=== PATIENT | female | born 1985 | race Caucasian/White ===

== ENCOUNTER 2017-02-19 21:45 | Inpatient (IN) | payer OTHER ==
[~2017-02-19] VITALS: Ht 165.1 cm; Wt 76.7 kg
[2017-02-19] MEDS ORDERED: PREN1SGL25 PO (22:25)
[2017-02-19] MEDS ORDERED: IRON65TA11 PO (22:26)
[2017-02-19] MEDS ORDERED: OXYTOCIN 20 UNITS/LR PREMIX 1,000 ML IV SCH (22:43)
[2017-02-19] MEDS ORDERED: LACTATED RINGERS 1,000 ML IV SCH (22:43)
[2017-02-19] MEDS ORDERED: NALBUPHINE 10 MG/ML AMP IVP PRN (22:45)
[2017-02-19] MEDS ORDERED: METHYLERGONOVINE 0.2 MG/ML AMP IM SCH (22:45)
[2017-02-19] MEDS ORDERED: CARBOPROST 250 MCG/ML AMP IM PRN (22:45)
[2017-02-19] MEDS ORDERED: PROMETHAZINE 25 MG/ML VIAL IVP PRN (22:45)
[2017-02-19] MEDS ORDERED: IBUPROFEN 800 MG TAB PO PRN (22:45)
[2017-02-19] MEDS ORDERED: NALBUPHINE HYDROCHLORIDE 10 MG/ML VIAL ONE (23:01)
[2017-02-19] MEDS ORDERED: OXYTOCIN 10 UNITS/ML VIAL ONE (23:17)
[2017-02-19] MEDS ORDERED: OXYTOCIN 20 UNITS/LR PREMIX 1,000 ML IV ONE (23:17)
[2017-02-19 23:51] LABS: BARBITURATE, URINE NEG. ng/ml (NEG <=200); BENZODIAZEPINE, URINE NEG. ng/mL (NEG <=200); CANNABINOID, URINE NEG. ng/mL (NEG <=50); COCAINE, URINE NEG. ng/mL (NEG <=300); OPIATE, URINE NEG. ng/mL (NEG <=2000); PHENCYCLIDINE SCREEN,URINE NEG. ng/mL (NEG <=25)
[2017-02-19 23:58] LABS: ANION GAP 14.3 (8-16); CARBON DIOXIDE 21.7 mmol/L (21-32); CREATININE 0.6 mg/dL (0.6-1.3); TOTAL BILIRUBIN 0.8 mg/dL (0.0-1.0)
[2017-02-20 00:10] LABS: BASOPHILS # (AUTO) 0.2 K/uL (0.00-0.22); BASOPHILS % (AUTO) 1.5 % (0.0-2.0); EOSINOPHILS # (AUTO) 0.2 K/uL (0-0.4); EOSINOPHILS % (AUTO) 2.2 % (0.0-4.0); LYMPHOCYTES # (AUTO) 0.9 K/uL (2.5-16.5); MEAN CORPUSCULAR HEMOGLOBIN 20 pg (27-31); MEAN CORPUSCULAR HGB CONC 29 g/dL (33-37); MONOCYTES # (AUTO) 0.8 K/uL (0.8-1.0); MONOCYTES % (AUTO) 7.4 % (1.7-9.3); NEUTROPHILS # (AUTO) 8.5 K/uL (1.8-7.7); NEUTROPHILS % (AUTO) 80.2 % (42.2-75.2); PLATELET COUNT (AUTO) 256 K/uL (140-450); RED BLOOD CELL COUNT(AUTO) 3.04 MIL/uL (4.20-5.40); WHITE BLOOD COUNT (AUTO) 10.6 K/uL (4.8-10.8)
[2017-02-20 00:12] LABS: HEMATOCRIT 20.7 % (36-48); HEMOGLOBIN 6.1 g/dL (12.0-16.0)
[2017-02-20 00:13] LABS: LYMPHOCYTES % (AUTO) 8.7 % (20.5-51.1); MEAN CORPUSCULAR VOLUME 68 fL (80-94); RED CELL DISTRIBUTION WIDTH 22.5 % (11.6-13.7)
[2017-02-20] MEDS ORDERED: METHYLERGONOVINE 0.2 MG/ML AMP IM PRN (02:00)
[2017-02-20] MEDS ORDERED: oxyCODONE/APAP 5/325 MG 1 TAB TAB PO PRN (02:00)
[2017-02-20] MEDS ORDERED: OXYTOCIN 10 UNITS/ML VIAL IM PRN (02:00)
[2017-02-20] MEDS ORDERED: HYDROcodone/APAP 5/325 MG 1 TAB TAB PO PRN (02:00)
[2017-02-20] MEDS ORDERED: IBUPROFEN 800 MG TAB PO PRN (02:00)
[2017-02-20] MEDS ORDERED: MEASLES, MUMPS, AND RUBELLA 1 VIAL SQVAC PRN (02:00)
[2017-02-20] MEDS ORDERED: BENZOCAINE/MENTHOL 20%-0.5% 60 GM CAN TP PRN (02:00)
[2017-02-20] MEDS ORDERED: TEMAZEPAM 15 MG CAP PO PRN (02:00)
[2017-02-20] MEDS ORDERED: OXYTOCIN 10 UNITS/ML VIAL IM ONE (06:00)
[2017-02-20 06:52] LABS: HEMOGLOBIN 5.4 g/dL (12.0-16.0)
[2017-02-20] MEDS: FERROUS SULFATE 325 MG TABEC PO SCH ×2 (09:00→18:06)
--- NOTE | 2017-02-20 11:20 | NUR ---
PATIENT HAS BEEN SCREENED AND CATEGORIZED LOW NUTRITION RISK. PATIENT WILL BE SEEN WITHIN 7 DAYS OF ADMISSION. 02/26/[address]
--- NOTE | 2017-02-20 13:38 | NUR ---
SS NOTE: I SPOKE WITH PT BEDSIDE AND PROVIDED HER WITH MIS[employer]RIAGE GRIEF INFORMATION WELL MORTUARY INFORMATION. PT STATED THAT SHE DID NOT HAVE ANY ADDITIONAL QUESTIONS OR CONCERNS AT THIS TIME.
--- NOTE | 2017-02-20 14:33 | NUR ---
RECEIVED HARD COPY FROM [employer] REF#[id number] APPROVED FOR 2 OB DAYS 02-19-17 TO 02-21-17.
[2017-02-20 20:04] LABS: BASOPHILS # (AUTO) 0.2 K/uL (0.00-0.22); BASOPHILS % (AUTO) 2.4 % (0.0-2.0); EOSINOPHILS # (AUTO) 0.2 K/uL (0-0.4); EOSINOPHILS % (AUTO) 2.6 % (0.0-4.0); HEMATOCRIT 26.7 % (36-48); HEMOGLOBIN 7.9 g/dL (12.0-16.0); LYMPHOCYTES # (AUTO) 1.3 K/uL (2.5-16.5); LYMPHOCYTES % (AUTO) 15.9 % (20.5-51.1); MEAN CORPUSCULAR HEMOGLOBIN 22 pg (27-31); MEAN CORPUSCULAR HGB CONC 30 g/dL (33-37); MEAN CORPUSCULAR VOLUME 73 fL (80-94); MONOCYTES # (AUTO) 0.7 K/uL (0.8-1.0); MONOCYTES % (AUTO) 8.1 % (1.7-9.3); NEUTROPHILS # (AUTO) 5.9 K/uL (1.8-7.7); PLATELET COUNT (AUTO) 299 K/uL (140-450); RED BLOOD CELL COUNT(AUTO) 3.67 MIL/uL (4.20-5.40); RED CELL DISTRIBUTION WIDTH 24.2 % (11.6-13.7); WHITE BLOOD COUNT (AUTO) 8.3 K/uL (4.8-10.8)
[2017-02-20] MEDS ORDERED: DOCUSATE SOD/SENNA 50/8.6 MG 1 TAB PO SCH (21:00)
[2017-02-21] MEDS: FERROUS SULFATE 325 MG TABEC PO SCH (08:34)
== END 2017-02-21 12:00 | disposition home or self-care (01) | DRG 560 ==
LOC: MLD 21:45 → OBSVTOIN 23:00 → MFCC 02-20 06:00
PROVIDERS: ADMIT Obstetrics & Gynecology; ATTEND Obstetrics & Gynecology
PROC: 3E0234Z Introduction of Serum, Toxoid and Vaccine into Muscle, Percutaneous Approach (ICD-10-PCS; principal; 2017-02-19)
PROC: 10E0XZZ Delivery of Products of Conception, External Approach (ICD-10-PCS; 2017-02-19)
PROC: 30233N1 Transfusion of Nonautologous Red Blood Cells into Peripheral Vein, Percutaneous Approach (ICD-10-PCS; 2017-02-19)
DX: O42.013 Preterm premature rupture of membranes, onset of labor within 24 hours of rupture, third trimester (principal); O45.93 Premature separation of placenta, unspecified, third trimester; O36.4XX0 Maternal care for intrauterine death, not applicable or unspecified; Z37.1 Single stillbirth; Z23 Encounter for immunization; Z3A.32 32 weeks gestation of pregnancy
CPT/HCPCS: 36415; 59409; 76815; 80053; 80305; 85018; 85025; 86592; 86762; 86886; 86900; 86901; 86920; 87340; 90715; G0378; J2300; J2590; J7042; J7120; P9016; Q0092

== ENCOUNTER 2018-04-21 07:46 | Emergency (ER) | payer OTHER ==
[~2018-04-21] VITALS: Ht 165.1 cm; Wt 78.5 kg
[2018-04-21 07:59] VITALS: BP 142/93
--- NOTE | 2018-04-21 08:00 | NUR ---
32Y/F BIB SELF C/O FATIGUE. PT STATES " SHE WAS SEEN BY PCP AND WAS SENT HERE DUE TO LOW RBC. PT LAB COLLECTED 04/15/2018 H/H 5.3. DENIES ACTIVE MENSES. AAOX4, PERRL, WITH EVEN AND STEADY GAIT; LUNGS CLEAR BL, BREATHING UNLABORED; HR EVEN AND REGULAR, BL PERIPHERAL PULSES PRESENT; BS ACTIVE X4, NO TENDERNESS TO PALPATION, NO HEPATOSPLENOMEGALLY PALPATED, RESONANT TO PERCUSSION; PT DENIES ANY FEVER, CP, SOB, OR COUGH AT THIS TIME; PT STATES 0/10 PAIN AT THIS TIME; VSS; PATIENT POSITIONED FOR COMFORT; HOB ELEVATED; BEDRAILS UP X1; BED DOWN, AWARE AND NOTIFIED OF PT STATUS. HX---ANEMIA RX---IRON
--- NOTE | 2018-04-21 08:22 | NUR ---
Patient being evaluated by physician at bedside.
--- NOTE | 2018-04-21 08:56 | NUR ---
EKG BEING DONE AT THIS TIME
[2018-04-21 09:17] LABS: PROTHROMBIN TIME 9.8 secs (10.8-13.4)
[2018-04-21 09:20] LABS: ANION GAP 9.6 (8-16); CARBON DIOXIDE 28.3 mmol/L (21-32); CREATININE 0.6 mg/dL (0.6-1.3); POTASSIUM 3.9 mmol/L (3.5-5.1)
[2018-04-21 09:26] LABS: TOTAL BILIRUBIN 1.2 mg/dL (0.0-1.0)
[2018-04-21 09:27] LABS: MEAN CORPUSCULAR HEMOGLOBIN 20 pg (27-31); MEAN CORPUSCULAR HGB CONC 29 g/dL (33-37); MEAN CORPUSCULAR VOLUME 69.3 fL (80-94)
[2018-04-21 09:28] LABS: LYMPHOCYTES % (AUTO) 26.7 % (20.5-51.1); MONOCYTES % (AUTO) 9.8 % (1.7-9.3); NEUTROPHILS # (AUTO) 2.4 K/uL (1.8-7.7); NEUTROPHILS % (AUTO) 60.5 % (42.2-75.2); PLATELET COUNT (AUTO) 206 K/uL (140-450)
[2018-04-21 09:29] LABS: EOSINOPHILS # (AUTO) 0.1 K/uL (0-0.4); LYMPHOCYTES # (AUTO) 1.1 K/uL (2.5-16.5); MONOCYTES # (AUTO) 0.4 K/uL (0.8-1.0)
--- NOTE | 2018-04-21 09:30 | NUR ---
CRITICAL LAB CALL FROM [facility]
[2018-04-21 09:40] LABS: COLOR,URINE YELLOW (YELLOW)
[2018-04-21 09:41] LABS: BILIRUBIN,URINE NEGATIVE (NEGATIVE); BLOOD, URINE NEGATIVE (NEGATIVE); NITRITE, URINE NEGATIVE (NEGATIVE); UGLUCOSE NEGATIVE (NEGATIVE)
[2018-04-21 09:56] LABS: APPEARANCE,URINE HAZY (CLEAR); RBC,URINE 0-5 (RARE) /HPF (0-5)
[2018-04-21 09:57] LABS: LEUKOCYTE ESTERASE ,URINE 1+ (NEGATIVE)
[2018-04-21 10:16] VITALS: BP 138/91
--- NOTE | 2018-04-21 10:16 | NUR ---
Patient discharged with v/s stable. Written and verbal after care instructions given and explained. Patient verbalized understanding. Ambulatory with steady gait. All questions addressed prior to discharge. Advised to follow up with PMD.
== END 2018-04-21 10:16 | disposition home or self-care (01) ==
LOC: MED 07:46
DX: R79.9 Abnormal finding of blood chemistry, unspecified (principal); E11.9 Type 2 diabetes mellitus without complications; I10 Essential (primary) hypertension; Z86.2 Personal history of diseases of the blood and blood-forming organs and certain disorders involving the immune mechanism
CPT/HCPCS: 36415; 80053; 81001; 81025; 85025; 85610; 85730; 86886; 86900; 86901; 87086; 93005; 99285